=== PATIENT | female | born 1950 | race Caucasian/White ===

== ENCOUNTER 2016-08-10 05:26 | Emergency (ER) | payer OTHER, BC ==
[~2016-08-10] VITALS: Ht 160 cm; Wt 59.6 kg
[~2016-08-10 05:26] MED LIST: AMBIEN10 MG PO; Bactrim,Septra DS 80 PO; CYCLOBENZAPRINE5 MG PO; KLONOPIN0.5 M1 PO; LIDOCAINE700 MG TD; MOTRIN600 MG PO; NORCO 5/3251 TABLET PO; THERAGRAN1 TABLET PO; TRAMADOL HCL50 MG PO; Zocor PO
[2016-08-10 06:08] LABS: EOSINOPHIL COUNT 0.1 K/uL (0-0.3); HEMATOCRIT 41.3 % (36.0-46.0); IMMATURE GRANULOCYTE (%) 0.2 % (0.0-0.7); INSTRUMENT ABS NEUTROPHIL CT 2.5 K/uL; LYMPHOCYTE COUNT 2.2 K/uL (1.0-2.8); MCH 30.9 PG (29.0-34.0); MCHC 33.7 G/DL (30.0-36.0); MCV 91.8 FL (83-99); MEAN PLAT.VOLUME 10.7 uM^3 (9.5-12.4); MONOCYTE (%) 7.9 % (3-12); MONOCYTE COUNT 0.4 K/uL (0-0.8); NEUTROPHIL (%) 47.7 % (45-76); NEUTROPHIL COUNT 2.5 K/uL (1.8-6.4); PLATELET COUNT 211 K/uL (156-360); RBC DIS.WIDTH-CV 12.6 % (11.8-14.6); RBC DIS.WIDTH-SD 42.6 % (39-53); WHITE BLOOD COUNT 5.2 K/uL (4.1-10.2)
[2016-08-10 06:17] LABS: PROTHROMBIN TIME 10.6 (9.2-11.2); PTT 26.3 (25-32)
[2016-08-10 06:22] LABS: CHLORIDE 106 mEq/L (99-109); POTASSIUM 3.8 mEq/L (3.7-5.4); SODIUM 142 mEq/L (136-147)
[2016-08-10 06:24] LABS: GLUCOSE 106 mg/dL (70-99)
[2016-08-10 06:25] LABS: ANION GAP 9 MEQ/L (2-14)
[2016-08-10 06:27] LABS: SERUM ETHYL ALCOHOL 132 mg/dL
[2016-08-10 06:28] LABS: GFR ESTIMATE (CALCULATED) 59 mL/min/
[2016-08-10 06:29] LABS: UREA NITROGEN (BUN) 9 mg/dL (9-23)
[2016-08-10 07:03] VITALS: BP 146/79
== END 2016-08-10 07:05 | disposition home or self-care (01) ==
LOC: EME 05:26
PROVIDERS: Emergency Medicine
DX: S00.83XA Contusion of other part of head, initial encounter (principal); W01.10XA Fall on same level from slipping, tripping and stumbling with subsequent striking against unspecified object, initial encounter; F41.9 Anxiety disorder, unspecified; F17.200 Nicotine dependence, unspecified, uncomplicated
CPT/HCPCS: 70450; 80048; 85025; 85610; 85730; 93005; 99281; 99284; G0480

== ENCOUNTER 2016-10-17 03:40 | Emergency (ER) | payer OTHER, BC ==
[~2016-10-17] VITALS: Ht 162.6 cm; Wt 59.2 kg
[2016-10-17 03:56] VITALS: BP 160/80
== END 2016-10-17 04:57 | disposition left against medical advice (07) ==
LOC: EME 03:40
DX: Z53.21 Procedure and treatment not carried out due to patient leaving prior to being seen by health care provider (principal)

== ENCOUNTER 2017-03-02 12:55 | Emergency (ER) | payer OTHER, BC ==
[~2017-03-02] VITALS: Ht 160 cm; Wt 60.3 kg
[2017-03-02] MEDS ORDERED: ULTRAM50 MG PO (14:27)
[2017-03-02 14:36] VITALS: BP 142/92
== END 2017-03-02 14:37 | disposition home or self-care (01) ==
LOC: EME 12:55
DX: S20.212A Contusion of left front wall of thorax, initial encounter (principal); W18.30XA Fall on same level, unspecified, initial encounter; R06.00 Dyspnea, unspecified; M41.84 Other forms of scoliosis, thoracic region
CPT/HCPCS: 71100; 99281; 99283

== ENCOUNTER 2017-05-07 17:21 | Inpatient (IN) | payer OTHER, BC ==
[~2017-05-07] VITALS: Ht 162.6 cm; Wt 58.9 kg
[~2017-05-07 17:21] MED LIST changes: +ULTRAM50 MG PO
[2017-05-07 18:11] LABS: HEMOGLOBIN 17.8 G/DL (11.9-15.5); MCH 31.2 PG (29.0-34.0); MCHC 34.9 G/DL (30.0-36.0); MCV 89.3 FL (83-99); RBC DIS.WIDTH-CV 12.1 % (11.8-14.6); RBC DIS.WIDTH-SD 39.8 % (39-53); RED BLOOD COUNT 5.71 M/uL (3.80-5.20); WHITE BLOOD COUNT 20.3 K/uL (4.1-10.2)
[2017-05-07 18:22] LABS: ALBUMIN 4.3 g/dL (3.2-4.8); CHLORIDE 100 mEq/L (99-109); SODIUM 136 mEq/L (136-147)
[2017-05-07 18:24] LABS: GLUCOSE 131 mg/dL (70-99); TOTAL PROTEIN 8.6 g/dL (6.4-8.3)
[2017-05-07 18:28] LABS: ALKALINE PHOSPHATASE 95 IU/L (3-129); GFR ESTIMATE (CALCULATED) 58 mL/min/
[2017-05-07 18:29] LABS: AST (GOT) 28 IU/L (2-34); UREA NITROGEN (BUN) 7 mg/dL (9-23)
[2017-05-07 18:30] LABS: DIRECT BILIRUBIN 0.3 mg/dL (0.0-0.3)
[2017-05-07 18:31] LABS: ALT (GPT) 18 IU/L (3-49); LIPASE 9 U/L (1.0-51.0)
[2017-05-07 19:20] LABS: PLAT.SUFFICIENCY ADEQUATE; PLATELET COUNT 246 K/uL (156-360)
[2017-05-07 19:53] LABS: APPEARANCE CLEAR ((CLEAR)); BILIRUBIN NEGATIVE; BLOOD MODERATE; COLOR STRAW ((YELLOW)); GLUCOSE (STRIP) NEGATIVE; KETONES NEGATIVE; LEUKOCYTES NEGATIVE; NITRITE NEGATIVE; PROTEIN (STRIP) NEGATIVE; SPECIFIC GRAVITY 1.031 (1.000-1.030); UROBILINOGEN 0.2 MG/DL (0.2-1.0)
[2017-05-07 20:03] LABS: BACTERIA NONE SEEN /HPF; EPITHELIAL CELLS RARE /HPF; MUCUS TRACE /LPF; RED BLOOD CELLS 0-5 /HPF (0-5); WHITE BLOOD CELLS 0-5 /HPF (0-5)
[2017-05-07 21:56] VITALS: BP 155/78
[2017-05-07 22:08] LABS: HEMATOCRIT 48.5 % (36.0-46.0); HEMOGLOBIN 16.5 G/DL (11.9-15.5); MCH 31.1 PG (29.0-34.0); MCV 91.3 FL (83-99); PLATELET COUNT 233 K/uL (156-360); RBC DIS.WIDTH-CV 12.4 % (11.8-14.6); RBC DIS.WIDTH-SD 41.6 % (39-53); RED BLOOD COUNT 5.31 M/uL (3.80-5.20); WHITE BLOOD COUNT 20.1 K/uL (4.1-10.2)
[2017-05-07 23:20] VITALS: BP 140/70
[2017-05-08 03:55] LABS: ALBUMIN 3.7 g/dL (3.2-4.8); CHLORIDE 102 mEq/L (99-109); POTASSIUM 3.6 mEq/L (3.7-5.4); SODIUM 135 mEq/L (136-147)
[2017-05-08 03:58] LABS: GLUCOSE 122 mg/dL (70-99)
[2017-05-08 03:59] LABS: TOTAL BILIRUBIN 0.9 mg/dL (0.0-1.0)
[2017-05-08 04:00] VITALS: BP 139/75
[2017-05-08 04:01] LABS: ALKALINE PHOSPHATASE 81 IU/L (3-129); CREATININE 0.7 mg/dL (0.6-1.3); GFR ESTIMATE (CALCULATED) > 59 mL/min/
[2017-05-08 04:03] LABS: AST (GOT) 24 IU/L (2-34); UREA NITROGEN (BUN) 5 mg/dL (9-23)
[2017-05-08 04:04] LABS: ALT (GPT) 14 IU/L (3-49)
[2017-05-08 04:15] LABS: TOTAL PROTEIN 6.8 g/dL (6.4-8.3)
[2017-05-08 07:23] VITALS: BP 137/66
[2017-05-08 08:24] LABS: C DIFF TOXIN NEGATIVE (NEGATIVE)
[2017-05-08 08:47] LABS: BASOPHIL (%) 0.2 % (0-1); EOSINOPHIL (%) 0.1 % (0-5); HEMATOCRIT 44.8 % (36.0-46.0); HEMOGLOBIN 15.3 G/DL (11.9-15.5); IMMATURE GRANULOCYTE (%) 0.4 % (0.0-0.7); LYMPHOCYTE (%) 10.3 % (15-42); LYMPHOCYTE COUNT 1.9 K/uL (1.0-2.8); MCH 31.5 PG (29.0-34.0); MCHC 34.2 G/DL (30.0-36.0); MCV 92.4 FL (83-99); MONOCYTE (%) 7.8 % (3-12); MONOCYTE COUNT 1.4 K/uL (0-0.8); NEUTROPHIL (%) 81.2 % (45-76); PLATELET COUNT 194 K/uL (156-360); RBC DIS.WIDTH-CV 12.4 % (11.8-14.6); RBC DIS.WIDTH-SD 42.3 % (39-53); RED BLOOD COUNT 4.85 M/uL (3.80-5.20); WHITE BLOOD COUNT 18.5 K/uL (4.1-10.2)
[2017-05-08 11:32] VITALS: BP 116/74
[2017-05-08 15:12] VITALS: BP 134/86
[2017-05-08 19:50] VITALS: BP 140/65
[2017-05-08 19:51] LABS: MCV 91.5 FL (83-99)
[2017-05-08 23:10] VITALS: BP 126/5; BP 126/75
[2017-05-09 03:55] VITALS: BP 139/83
[2017-05-09 06:51] LABS: BASOPHIL (%) 0.2 % (0-1); EOSINOPHIL (%) 0.9 % (0-5); EOSINOPHIL COUNT 0.1 K/uL (0-0.3); HEMATOCRIT 40.8 % (36.0-46.0); HEMOGLOBIN 13.6 G/DL (11.9-15.5); IMMATURE GRANULOCYTE (%) 0.4 % (0.0-0.7); LYMPHOCYTE (%) 17.6 % (15-42); LYMPHOCYTE COUNT 2.3 K/uL (1.0-2.8); MCH 30.6 PG (29.0-34.0); MCHC 33.3 G/DL (30.0-36.0); MCV 91.7 FL (83-99); MONOCYTE (%) 7.3 % (3-12); NEUTROPHIL (%) 73.6 % (45-76); NEUTROPHIL COUNT 9.5 K/uL (1.8-6.4); PLATELET COUNT 180 K/uL (156-360); RBC DIS.WIDTH-CV 12.3 % (11.8-14.6); RBC DIS.WIDTH-SD 41.1 % (39-53); RED BLOOD COUNT 4.45 M/uL (3.80-5.20); WHITE BLOOD COUNT 12.9 K/uL (4.1-10.2)
[2017-05-09 07:00] VITALS: BP 113/73
[2017-05-09 07:14] LABS: CHLORIDE 108 MEQ/L (99-109); CREATININE 0.7 MG/DL (0.6-1.3); GFR ESTIMATE (CALCULATED) > 59 mL/min/; POTASSIUM 3.3 MEQ/L (3.7-5.4); SODIUM 141 MEQ/L (136-147); UREA NITROGEN (BUN) 3 mg/dL (9-23)
[2017-05-09 07:19] LABS: GLUCOSE 81 mg/dL (70-99)
[2017-05-09] MEDS ORDERED: ZOCOR20 MG PO (12:58)
[2017-05-09 17:29] VITALS: BP 137/73
[2017-05-09 23:48] VITALS: BP 138/62
[2017-05-10 06:24] LABS: BASOPHIL (%) 0.3 % (0-1); EOSINOPHIL (%) 2.8 % (0-5); EOSINOPHIL COUNT 0.3 K/uL (0-0.3); HEMATOCRIT 37.1 % (36.0-46.0); HEMOGLOBIN 12.5 G/DL (11.9-15.5); IMMATURE GRANULOCYTE (%) 0.4 % (0.0-0.7); LYMPHOCYTE (%) 25.2 % (15-42); LYMPHOCYTE COUNT 2.3 K/uL (1.0-2.8); MCH 31.1 PG (29.0-34.0); MCHC 33.7 G/DL (30.0-36.0); MCV 92.3 FL (83-99); MONOCYTE (%) 6.9 % (3-12); MONOCYTE COUNT 0.6 K/uL (0-0.8); NEUTROPHIL (%) 64.4 % (45-76); NEUTROPHIL COUNT 5.8 K/uL (1.8-6.4); PLATELET COUNT 166 K/uL (156-360); RBC DIS.WIDTH-CV 12.4 % (11.8-14.6); RBC DIS.WIDTH-SD 41.8 % (39-53); RED BLOOD COUNT 4.02 M/uL (3.80-5.20); WHITE BLOOD COUNT 9.1 K/uL (4.1-10.2)
[2017-05-10 06:57] LABS: CHLORIDE 107 MEQ/L (99-109); CREATININE 0.6 MG/DL (0.6-1.3); GFR ESTIMATE (CALCULATED) > 59 mL/min/; GLUCOSE 84 mg/dL (70-99); POTASSIUM 3.4 MEQ/L (3.7-5.4); SODIUM 139 MEQ/L (136-147); UREA NITROGEN (BUN) 3 mg/dL (9-23)
[2017-05-10 08:20] VITALS: BP 121/60
[2017-05-10] MEDS ORDERED: CIPROFLOXACIN500 M1 PO (11:38)
[2017-05-10] MEDS ORDERED: METRONIDAZOLE500 MG PO (11:38)
== END 2017-05-10 14:38 | disposition home or self-care (01) | DRG 872 ==
LOC: EME 17:21 → 2EAST 20:17 → EDOF 20:17 → ENRESERV 20:19 → 2EAST 21:33
PROVIDERS: Internal Medicine; Physician Assistant; Student in an Organized Health Care Education/Training Program
DX: A41.9 Sepsis, unspecified organism (principal); A09 Infectious gastroenteritis and colitis, unspecified; E87.2 Acidosis; E87.6 Hypokalemia; E78.5 Hyperlipidemia, unspecified; F17.200 Nicotine dependence, unspecified, uncomplicated; F41.9 Anxiety disorder, unspecified; G89.29 Other chronic pain; M19.90 Unspecified osteoarthritis, unspecified site; R03.0 Elevated blood-pressure reading, without diagnosis of hypertension
CPT/HCPCS: 74177; 80048; 80053; 80076; 81003; 83605; 83690; 85014; 85018; 85025; 85027; 87040; 87493; 87506; J0744; J1650; J2060; J2270; J3010; J7030; S0028; S0030

== ENCOUNTER 2017-10-07 20:26 | Emergency (ER) | payer OTHER, BC ==
[~2017-10-07] VITALS: Ht 160 cm; Wt 63.5 kg
[~2017-10-07 20:26] MED LIST changes: +CIPROFLOXACIN500 M1 PO; +METRONIDAZOLE500 MG PO; +ZOCOR20 MG PO
[2017-10-07] MEDS ORDERED: ULTRAM50 MG PO (23:16)
[2017-10-07 23:45] VITALS: BP 144/105
== END 2017-10-07 23:47 | disposition home or self-care (01) ==
LOC: EME 20:26
DX: S46.911A Strain of unspecified muscle, fascia and tendon at shoulder and upper arm level, right arm, initial encounter (principal); S80.01XA Contusion of right knee, initial encounter; S93.401A Sprain of unspecified ligament of right ankle, initial encounter; M54.5 Low back pain; W01.0XXA Fall on same level from slipping, tripping and stumbling without subsequent striking against object, initial encounter; Y92.524 Gas station as the place of occurrence of the external cause; F17.200 Nicotine dependence, unspecified, uncomplicated
CPT/HCPCS: 73030; 73564; 73610; 99281; 99284